=== PATIENT | female | born 1995 | race Caucasian/White ===

== ENCOUNTER 2017-09-05 05:24 | Emergency (ER) | payer OTHER ==
[~2017-09-05] VITALS: Ht 162.6 cm; Wt 54.0 kg
[2017-09-05] MEDS ORDERED: TETANUS, DIPHTHERIA, PERTUSSIS VAC/PF 0.5ML (>7YR OLD) IM ONE (10:00)
[2017-09-05] MEDS ORDERED: ACETAMINOPHEN 325MG TABLET PO ONE (10:00)
[2017-09-05 10:30] VITALS: BP 110/60
[2017-09-05] MEDS ORDERED: ONDANSETRON 4MG ODT PO ONE (11:45)
[2017-09-05] MEDS ORDERED: BACITRACIN ZINC OINT UDPKT TOP ONE (12:00)
== END 2017-09-05 12:11 | disposition home or self-care (01) ==
LOC: ER 05:24
DX: S80.01XA Contusion of right knee, initial encounter (principal); V89.9XXA Person injured in unspecified vehicle accident, initial encounter; Y93.89 Activity, other specified; Y92.89 Other specified places as the place of occurrence of the external cause; Y99.8 Other external cause status
CPT/HCPCS: 73562; 81025; 99284; J7030; L1830; 90715

== ENCOUNTER 2019-07-01 14:59 | Emergency (ER) | payer OTHER ==
[~2019-07-01] VITALS: Ht 160 cm; Wt 48.0 kg
[2019-07-01] MEDS ORDERED: ACETAMINOPHEN WITH CODEINE 300/30MG TABLET PO ONE (17:15)
[2019-07-01 17:47] LABS: CLARITY URINE TURBID (CLEAR); COLOR URINE ORANGE (YELLOW); KETONES URINE 3+ (NEGATIVE); LEUKOCYTE ESTERASE URINE 2+ (NEGATIVE); NITRITE URINE POSITIVE (NEGATIVE); OCCULT BLOOD URINE 3+ (NEGATIVE); PROTEIN URINE 2+ (NEGATIVE); SPECIFIC GRAVITY URINE 1.028 (1.005-1.030)
[2019-07-01] MEDS ORDERED: HYDROCODONE/ACETAMINOPHEN 5/325MG TABLET PO ONE (18:15)
[2019-07-01] MEDS ORDERED: CEPHALEXIN 250MG CAPSULE PO ONE (18:15)
[2019-07-01 18:30] VITALS: BP 112/64
== END 2019-07-01 18:39 | disposition home or self-care (01) ==
LOC: ER 14:59
DX: N30.00 Acute cystitis without hematuria (principal)
CPT/HCPCS: 81003; 81025; 87077; 87186; 99283

== ENCOUNTER 2019-07-20 20:41 | Emergency (ER) | payer OTHER ==
[~2019-07-20] VITALS: Ht 149.9 cm; Wt 47.1 kg
[2019-07-20 23:35] VITALS: BP 111/57
== END 2019-07-21 00:13 | disposition left against medical advice (07) ==
LOC: ER 20:41
DX: Z53.21 Procedure and treatment not carried out due to patient leaving prior to being seen by health care provider (principal)